=== PATIENT | male | born 1965 | race Caucasian/White ===

== ENCOUNTER → 2022-12-02 10:10 | Outpatient (BNVA) | payer BC, SELFPAY | PROVIDERS: PCP Family Medicine; Visit Provider Family Medicine | DX: Z79.891 Long term (current) use of opiate analgesic (principal) | CPT/HCPCS: 80307 ==

== ENCOUNTER 2023-03-02 07:51 | Outpatient (CLI) | payer BC, SELFPAY ==
--- NOTE | 2023-03-02 08:13 | MR_ITS ---
WS: [id number] MRI CERVICAL SPINE with and without contrast. HISTORY: FAILED BACK SYNDROME/DDD CERVICAL COMPARISON: None available. Technique: Multiplanar, multisequence noncontrast imaging of the cervical spine. Post contrast imagin g also performed. MultiHance 20 mL. Mild increase in the cervical lordosis. Anterior cervical fusion from C5 to C7. Disc spaces are narro wed. No marrow edema or fracture. Signal within the cervical cord is normal. Visualized posterior fossa is unremarkable. Craniocervical junction, C1 and C2 relationship, odontoid process and soft tissues are normal. C2-C3: Normal. C3-C4: Normal. C4-C5: Mild annular disc bulge with a shallow central disc protrusion. Bilateral facet arthritis. Mil d central and LEFT foraminal stenosis. C5-C6: Bilateral facet arthritis. No significant stenosis. C6-C7: Mild osteophytic ridging. C7-T1: Shallow LEFT foraminal disc protrusion. No stenosis. No evidence for discitis or osteomyelitis. MR/MR cervical spine wo/w [id number] IMPRESSION: 1. Prior anterior cervical fusion from C5 to C7. 2. No high-grade central or foraminal stenosis. 3. No discitis or osteomyelitis. 4. Mild central LEFT foraminal stenosis at C4-5. Shallow central disc protrusi on at C4-5. 5. Very shallow LEFT foraminal disc protrusion at C7-T1.
[2023-03-02] MEDS: gadobenate dimeglumine 20 mL vial IV (09:56)
== END 2023-03-02 07:52 | disposition home or self-care (01) ==
PROVIDERS: PCP Nurse Practitioner Family; Visit Provider General Practice
DX: M96.1 Postlaminectomy syndrome, not elsewhere classified (principal); M50.30 Other cervical disc degeneration, unspecified cervical region; Z98.1 Arthrodesis status; M48.02 Spinal stenosis, cervical region; M50.221 Other cervical disc displacement at C4-C5 level
CPT/HCPCS: 72156; A9577

== ENCOUNTER 2023-06-25 06:00 | Outpatient (RCR) | payer BC, SELFPAY | END 2023-07-13 23:59 | disposition home or self-care (01) | LOC: GPT 06:00 | PROVIDERS: Visit Provider Orthopaedic Surgery | DX: Z47.89 Encounter for other orthopedic aftercare (principal); M22.2X1 Patellofemoral disorders, right knee | CPT/HCPCS: 97110; 97161 ==

== ENCOUNTER 2023-07-14 06:00 | Outpatient (RCR) | payer BC, SELFPAY | END 2023-08-12 23:59 | disposition home or self-care (01) | LOC: GPT 06:00 | PROVIDERS: Visit Provider Orthopaedic Surgery | DX: M22.2X1 Patellofemoral disorders, right knee (principal) | CPT/HCPCS: 97110; 97140; 97530 ==

== ENCOUNTER 2023-08-13 06:00 | Outpatient (RCR) | payer BC, SELFPAY | END 2023-09-12 23:59 | disposition home or self-care (01) | LOC: GPT 06:00 | PROVIDERS: Visit Provider Orthopaedic Surgery | DX: M22.2X1 Patellofemoral disorders, right knee (principal) | CPT/HCPCS: 97110; 97112; 97140; 97164 ==

== ENCOUNTER → 2025-08-14 13:34 | Outpatient (BNVA) | payer OTHER, SELFPAY | PROVIDERS: PCP Nurse Practitioner Family; Visit Provider Nurse Practitioner Family | DX: M79.673 Pain in unspecified foot (principal) | CPT/HCPCS: 73630 ==